=== PATIENT | male | born 1955 | race Caucasian/White ===

== ENCOUNTER 2023-11-22 22:24 | Emergency (ER) | payer OTHER ==
[~2023-11-22] VITALS: Ht 188 cm; Wt 113.4 kg
[2023-11-22 22:59] VITALS: O2SAT 99
[2023-11-22] MEDS ORDERED: BACTRIM DS TAB1 EACH PO (23:49)
[2023-11-22] MEDS ORDERED: CEPHALEXIN500 MG PO (23:49)
== END 2023-11-22 23:55 | disposition home or self-care (01) ==
LOC: ER 22:29
DX: M79.604 Pain in right leg (principal); S80.921A Unspecified superficial injury of right lower leg, initial encounter; R60.9 Edema, unspecified; V89.2XXA Person injured in unspecified motor-vehicle accident, traffic, initial encounter
CPT/HCPCS: 99283